=== PATIENT | female | born 1970 | race Caucasian/White ===

== ENCOUNTER 2018-09-06 11:25 | Emergency (ER) | payer OTHER ==
[2018-09-06 11:34] VITALS: BP 95/66; PULSE 79; TEMP 97.6; BMI 38.0
[2018-09-06] MEDS ORDERED: KETOROLAC TROMETHAMINE 60 MG/2 ML VIAL IM ONE (11:45)
--- NOTE | 2018-09-06 11:53 | PDOC ---
History of Present Illness - General Chief Complaint: Pain, Acute Stated Complaint: LT LEG PAIN Time Seen by Provider: 09/06/18 11:34 - History of Present Illness Initial Comments: 09/06/18 11:46 47-year-old female with a past medical history significant for diabetes and hypothyroidism presents for evaluation of left leg knee and lower back pain times one month. She had a fall about 2 years ago last month return pain is be getting worse. No systemic symptoms loss of bowel or bladder function or saddle paresthesias. Past History - Past Medical History Allergies/Adverse Reactions: Allergies Allergy/AdvReac Type Severity Reaction Status Date / Time No Known Allergies Allergy Verified 09/06/18 11:35 Home Medications: Ambulatory Orders Levothyroxine [Synthroid -] 250 mcg PO DAILY 09/08/13 Naproxen [Naprosyn -] 500 mg PO BID PRN #30 tablet 09/08/13 metFORMIN HCL [Metformin HCl] 800 mg PO BID 09/08/13 COPD: No Diabetes: Yes (NIDDM) Thyroid Disease: Yes (Hypothyroid) - Immunization History Immunization Up to Date: No - Suicide/Smoking/Psychosocial Hx Smoking History: Never smoked Have you smoked in the past 12 months: No Information on smoking cessation initiated: No Hx Alcohol Use: No Drug/Substance Use Hx: No Review of Systems - Review of Systems Musculoskeletal: Yes: Back Pain, Joint Pain *Physical Exam - Vital Signs Last Vital Signs Temp Pulse Resp BP Pulse Ox 97.6 F 79 1 L 95/66 100 09/06/18 11:32 09/06/18 11:32 09/06/18 11:32 09/06/18 11:32 09/06/18 11:32 - Physical Exam Comments: 09/06/18 11:50 Lumbar spine skin color and temperature are normal. There is full nonpainful range of motion. 5 out of 5 strength in bilateral lower extremities.. There is no clonus. Straight leg raise test is negative bilaterally. Thighs and calves are soft and nontender. There are no gross sensory motor deficits. Neurovascularly intact. Left knee skin color and temperature are normal range of motion is full with mild patellofemoral crepitation which is nonpainful. Posterior medial joint line tenderness no instability or gross sensory motor deficits neurovascular intact. Medical Decision Making - Medical Decision Making 09/06/18 11:53 47-year-old female with lumbar radiculopathy and posterior medial joint line tenderness about the left knee represent a medial meniscal tear also has patellofemoral syndrome I will refer her to orthopedic surgery one-time dose of Toradol in the emergency room advised against anti-inflammatories at home *DC/Admit/Observation/Transfer Diagnosis at time of Disposition: Lumbar radiculopathy, Patella-femoral syndrome - Discharge Dispostion Disposition: HOME Condition at time of disposition: Stable Decision to Admit order: No - Referrals Referrals: Vick Alva DO [Staff Physician] - - Patient Instructions Printed Discharge Instructions: Lumbar Radiculopathy, DI for Lumbar Radiculopathy, Patellofemoral Pain Syndrome Additional Instructions: For pain as directed. Avoid anti-inflammatory such as Advil Motrin Aleve and ibuprofen. Follow-up with orthopedic surgery in 1-2 days without fail for further evaluation and treatment options. Return to the emergency room for worsening symptoms. - Post Discharge Activity
[2018-09-06] MEDS ORDERED: KETOROLAC TROMETHAMINE 60 MG/2 ML VIAL ONE (11:54)
== END 2018-09-06 12:11 | disposition home or self-care (01) ==
LOC: JERFT 11:25
PROC: 3E0233Z Introduction of Anti-inflammatory into Muscle, Percutaneous Approach (ICD-10-PCS; principal; 2018-09-06)
DX: M22.2X2 Patellofemoral disorders, left knee (principal); M54.16 Radiculopathy, lumbar region; E11.9 Type 2 diabetes mellitus without complications; E03.9 Hypothyroidism, unspecified
CPT/HCPCS: 96372; 99281-25

== ENCOUNTER 2020-04-04 08:51 | Emergency (ER) | payer OTHER ==
[2020-04-04 09:26] VITALS: BP 118/69; PULSE 90; TEMP 98.1; BMI 36.8
== END 2020-04-04 11:23 | disposition home or self-care (01) ==
LOC: JER 08:51 → JERFT 08:51
DX: S39.92XA Unspecified injury of lower back, initial encounter (principal); S89.92XA Unspecified injury of left lower leg, initial encounter
CPT/HCPCS: 76000-TC-FY; 99283-25; 99284-25

== ENCOUNTER 2020-08-27 07:28 | Inpatient (IN) | payer OTHER ==
[2020-08-27 07:37] VITALS: BMI 35.3
[2020-08-27] MEDS ORDERED: SODIUM CHLORIDE 1,000 ML IV SCH (08:00)
[2020-08-27] MEDS ORDERED: ACETAMINOPHEN 1000 MG/100 ML VIAL (NON FORMULARY) IVPB ONE (08:15)
[2020-08-27] MEDS ORDERED: ACETAMINOPHEN INJECTION 100 ML IVPB ONE (08:25)
[2020-08-27 08:31] LABS: BASO % 0.5 % (0-2.0); HEMATOCRIT 35.8 % (32.4-45.2); HEMOGLOBIN 12.2 GM/dL (10.7-15.3); LYMPH % 29.8 % (8-40); MCH 29.6 pg (25.7-33.7); MCHC 34.1 g/dl (32.0-36.0); MEAN CELL VOLUME 86.8 fl (80-96); MEAN PLT VOLUME 8.2 fl (7.5-11.1); MONO % 11.8 % (3.8-10.2); NEUT % 54.9 % (42.8-82.8); PLATELET COUNT 230 10^3/uL (134-434); RBC 4.13 M/mm3 (3.60-5.2); RDW 12.9 % (11.6-15.6); WHITE BLOOD COUNT 7.2 K/mm3 (4.0-10.0)
[2020-08-27 08:39] LABS: INR 0.88 (0.83-1.09); PROTHROMBIN TIME (PATIENT) 10.7 SEC (9.7-13.0)
[2020-08-27 08:42] LABS: ACTIVATED PTT 23.6 SECONDS (25.2-36.5)
[2020-08-27 08:49] LABS: CHLORIDE 102 mmol/L (98-107); SODIUM 135 mmol/L (136-145)
[2020-08-27 08:51] LABS: CALCIUM 9.1 mg/dL (8.5-10.1)
[2020-08-27 08:52] LABS: ANION GAP 7 MMOL/L (8-16); BLOOD UREA NITROGEN 12.8 mg/dL (7-18); CO2 26 mmol/L (21-32); GLUCOSE,RANDOM 265 mg/dL (74-106)
[2020-08-27 08:53] LABS: ALBUMIN 3.5 g/dl (3.4-5.0)
[2020-08-27 08:55] LABS: CHOLESTEROL 171 mg/dL (50-200); CREATININE 0.6 mg/dL (0.55-1.3); SGOT/AST 16 U/L (15-37); SGPT/ALT 30 U/L (13-61)
[2020-08-27 08:56] LABS: BILIRUBIN,TOTAL 0.4 mg/dL (0.2-1); LDL CHOLESTEROL (ONLY SJRH) 90 mg/dL (5-100)
[2020-08-27 08:58] LABS: ALK PHOS 75 U/L (45-117); HDL CHOLESTEROL 49 mg/dL (40-60); TOT PROT 6.9 g/dl (6.4-8.2); TRIGLYCERIDES 251 mg/dL (0-150)
[2020-08-27 10:56] LABS: URINE APPEARANCE CLEAR; URINE BILIRUBIN NEGATIVE (NEGATIVE); URINE COLOR YELLOW; URINE GLUCOSE (UA) 3+ (NEGATIVE); URINE KETONE TRACE (NEGATIVE); URINE LEUK ESTERASE NEGATIVE (NEGATIVE); URINE NITRITE NEGATIVE (NEGATIVE); URINE PROTEIN NEGATIVE (NEGATIVE); URINE UROBILINOGEN 0.2 mg/dL (0.2-1.0)
[2020-08-27] MEDS ORDERED: LORazepam 2 MG/ML SDV VIAL IVPUSH PRN (14:15)
[2020-08-27] MEDS ORDERED: SODIUM CHLORIDE 0.45% 1,000 ML IV SCH (15:00)
[2020-08-27] MEDS ORDERED: ACETAMINOPHEN 500 MG TABLET (FP) ONE (15:31)
[2020-08-27 15:34] LABS: MAGNESIUM 1.6 mg/dL (1.8-2.4)
[2020-08-27] MEDS: ACETAMINOPHEN 500 MG TABLET (FP) PO SCH ×2 (15:37→22:51)
[2020-08-27] MEDS: POTASSIUM CHLORIDE 10 MEQ in SODIUM CHLORIDE 0.45% 1,000 ML IVPB SCH (17:51)
[2020-08-27] MEDS: HEPARIN NA (PORCINE) 5,000 UNITS/ML 1ML VIAL SQ SCH (22:52)
[2020-08-28] MEDS: ACETAMINOPHEN 500 MG TABLET (FP) PO SCH ×4 (02:30→21:15)
[2020-08-28] MEDS ORDERED: LEVOTHYROXINE NA 200 MCG TABLET ONE (05:06)
[2020-08-28] MEDS ORDERED: LEVOTHYROXINE NA 50 MCG TABLET (FP) ONE (05:06)
[2020-08-28] MEDS: POTASSIUM CHLORIDE 10 MEQ in SODIUM CHLORIDE 0.45% 1,000 ML IVPB SCH ×2 (05:44→16:25)
[2020-08-28] MEDS: LEVOTHYROXINE PO SCH (05:59)
[2020-08-28] MEDS: INSULIN SLIDING SCALE (NOVOLOG) 1 VIAL SQ SCH ×4 (05:59→21:16)
[2020-08-28 08:31] LABS: BASO % 0.5 % (0-2.0); EOS % 2.6 % (0-4.5); HEMOGLOBIN 12.4 GM/dL (10.7-15.3); LYMPH % 34.1 % (8-40); MCH 29.2 pg (25.7-33.7); MCHC 33.5 g/dl (32.0-36.0); MEAN CELL VOLUME 87.1 fl (80-96); MEAN PLT VOLUME 8.5 fl (7.5-11.1); NEUT % 50.8 % (42.8-82.8); PLATELET COUNT 245 10^3/uL (134-434); RBC 4.25 M/mm3 (3.60-5.2); RDW 12.9 % (11.6-15.6); WHITE BLOOD COUNT 6.7 K/mm3 (4.0-10.0)
[2020-08-28 08:53] LABS: BLOOD UREA NITROGEN 10.5 mg/dL (7-18)
[2020-08-28 08:54] LABS: ALBUMIN 3.5 g/dl (3.4-5.0)
[2020-08-28 08:56] LABS: CREATININE 0.5 mg/dL (0.55-1.3)
[2020-08-28 08:58] LABS: BILIRUBIN,TOTAL 0.4 mg/dL (0.2-1); TOT PROT 6.9 g/dl (6.4-8.2)
[2020-08-28] MEDS: HEPARIN NA (PORCINE) 5,000 UNITS/ML 1ML VIAL SQ SCH ×2 (09:28→21:15)
[2020-08-28] MEDS ORDERED: LEVOTHYROXINE NA 200 MCG TABLET PO SCH (10:00)
[2020-08-28] MEDS: GABAPENTIN 100 MG CAPSULE PO SCH ×2 (13:57→21:15)
[2020-08-28] MEDS ORDERED: HYDROmorphone HCl 2 MG/ML VIAL IVPB ONE (16:30)
[2020-08-28] MEDS ORDERED: ONDANSETRON 4 MG/2 ML VIAL IVPUSH ONE (17:43)
[2020-08-29] MEDS: ACETAMINOPHEN 500 MG TABLET (FP) PO SCH ×2 (02:00→10:01)
[2020-08-29] MEDS: POTASSIUM CHLORIDE 10 MEQ in SODIUM CHLORIDE 0.45% 1,000 ML IVPB SCH (03:15)
[2020-08-29] MEDS ORDERED: LEVOTHYROXINE NA 50 MCG TABLET (FP) ONE (05:18)
[2020-08-29] MEDS ORDERED: LEVOTHYROXINE NA 200 MCG TABLET ONE (05:19)
[2020-08-29] MEDS: LEVOTHYROXINE PO SCH (06:42)
[2020-08-29] MEDS: GABAPENTIN 100 MG CAPSULE PO SCH ×2 (06:42→13:33)
[2020-08-29] MEDS: INSULIN SLIDING SCALE (NOVOLOG) 1 VIAL SQ SCH ×2 (06:47→11:26)
[2020-08-29] MEDS: HEPARIN NA (PORCINE) 5,000 UNITS/ML 1ML VIAL SQ SCH (10:02)
[2020-08-29 14:03] VITALS: BP 140/90; PULSE 92; TEMP 98.4
== END 2020-08-29 14:54 | disposition home or self-care (01) | DRG 347 ==
LOC: JER 07:28 → JERBED 11:40 → J7W 16:43
PROVIDERS: ADMIT Family Medicine; ATTEND Family Medicine
DX: M54.16 Radiculopathy, lumbar region (principal); R20.0 Anesthesia of skin; K21.9 Gastro-esophageal reflux disease without esophagitis; E11.9 Type 2 diabetes mellitus without complications; G91.9 Hydrocephalus, unspecified; E66.01 Morbid (severe) obesity due to excess calories; Z68.36 Body mass index [BMI] 36.0-36.9, adult; E03.9 Hypothyroidism, unspecified; D64.9 Anemia, unspecified; R53.1 Weakness
CPT/HCPCS: 36415; 70450-TC; 70551-TC; 72125-TC; 72141-TC; 80053; 80061; 81003; 82550; 82962; 83721; 83735; 84443; 84484; 84703; 85025; 85610; 85730; 86850; 86900; 86901; 93005; 93010; 97116-GP; 97161-GP; 99285-25; C9803; J0131; U0003; U0005

== ENCOUNTER 2021-11-18 11:27 | Emergency (ER) | payer OTHER ==
[2021-11-18 11:38] VITALS: BP 128/82; PULSE 78; RESP 20; TEMP 98.4; BMI 35.7
[2021-11-18] MEDS ORDERED: SODIUM CHLORIDE 1,000 ML IV STA (13:25)
[2021-11-18] MEDS ORDERED: ACETAMINOPHEN 1000 MG/100 ML BAG IVPB ONE (13:25)
[2021-11-18] MEDS ORDERED: METOCLOPRAMIDE HCL INJECTION 10 MG/2 ML VIAL IVPB ONE (13:25)
[2021-11-18] MEDS ORDERED: METOCLOPRAMIDE HCL INJECTION 10 MG/2 ML VIAL ONE (14:18)
[2021-11-18] MEDS ORDERED: ACETAMINOPHEN INJECTION 100 ML IVPB ONE (14:18)
[2021-11-18 15:56] LABS: BASO % 0.5 % (0-2.0); EOS % 3.7 % (0-4.5); HEMATOCRIT 38.1 % (32.4-45.2); HEMOGLOBIN 12.5 GM/dL (10.7-15.3); LYMPH % 34.4 % (8-40); MCH 29.3 pg (25.7-33.7); MCHC 32.9 g/dl (32.0-36.0); MEAN CELL VOLUME 89.2 fl (80-96); MEAN PLT VOLUME 8.9 fl (7.5-11.1); MONO % 10.3 % (3.8-10.2); NEUT % 51.1 % (42.8-82.8); PLATELET COUNT 253 10^3/uL (134-434); RBC 4.27 M/mm3 (3.60-5.2); RDW 13.4 % (11.6-15.6); WHITE BLOOD COUNT 8.4 K/mm3 (4.0-10.0)
[2021-11-18 16:16] LABS: ALBUMIN 3.4 g/dl (3.4-5.0); BLOOD UREA NITROGEN 11.2 mg/dL (7-18); CALCIUM 8.6 mg/dL (8.5-10.1)
[2021-11-18 16:20] LABS: CREATININE 0.6 mg/dL (0.55-1.3)
[2021-11-18 16:22] LABS: BILIRUBIN,TOTAL 0.3 mg/dL (0.2-1); TOT PROT 6.7 g/dl (6.4-8.2)
[2021-11-18 16:23] LABS: INR 1.01 (0.83-1.09); PROTHROMBIN TIME (PATIENT) 11.6 SEC (9.7-13.0)
== END 2021-11-18 18:28 | disposition home or self-care (01) ==
LOC: JER 11:27
PROC: 3E033GC Introduction of Other Therapeutic Substance into Peripheral Vein, Percutaneous Approach (ICD-10-PCS; principal; 2021-11-18)
DX: G43.909 Migraine, unspecified, not intractable, without status migrainosus (principal)
CPT/HCPCS: 0241U-QW; 36415; 70450-TC; 80053; 85025; 85610; 93005; 93010; 99285-25